=== PATIENT | male | born 1990 | race African-American/Black ===

== ENCOUNTER → 2021-01-22 | Outpatient (CLI) | payer OTHER ==
[2021-01-23 01:24] LABS: African American GFR (CKD) 152.1 (60.0-200.0); Albumin 4.7 g/dL (3.8-4.9); Albumin/Globulin Ratio 1.55 (1.60-3.17); Anion Gap 12.3 mmol/L (4.00-12.00); BUN/Creat Ratio 18.23 Ratio (12.00-20.00); Blood Urea Nitrogen 11.3 mg/dL (9.0-27.0); Carbon Dioxide 24.2 mmol/L (21.6-31.8); Non-African American GFR(CKD) 131.3 (60.0-200.0); Potassium 4.6 mmol/L (3.5-5.5); Total Bilirubin 0.3 mg/dL (0.30-1.20); Total Protein 7.7 g/dL (6.2-8.2)
== END | disposition home or self-care (01) ==
LOC: LABWHC1 14:15
PROVIDERS: ATTEND Family Medicine
DX: F11.20 Opioid dependence, uncomplicated (principal)
CPT/HCPCS: 36415; 80053